=== PATIENT | male | born 1945 | race Caucasian/White ===

== ENCOUNTER → 2016-05-24 | Outpatient (CLI) | payer OTHER | LOC: CIMAGING 10:34 | PROVIDERS: ATTEND Internal Medicine Pulmonary Disease | DX: M79.605 Pain in left leg (principal); M79.89 Other specified soft tissue disorders | CPT/HCPCS: 93971-PO ==

== ENCOUNTER 2016-08-15 09:28 | Observation (INO) | payer OTHER ==
[2016-08-15] MEDS ORDERED: ASPIRIN EC 325 MG TAB PO ONE (09:32)
[2016-08-15] MEDS ORDERED: FAMOTIDINE 20 MG TAB PO ONE (09:32)
[2016-08-15] MEDS ORDERED: diphenhydrAMINE 25 MG CAP PO ONE ×2 (09:32→09:59)
[2016-08-15] MEDS ORDERED: DIAZEPAM 5 MG TAB PO ONE (09:32)
[2016-08-15] MEDS ORDERED: NS 1,000 ML IV ONE (09:32)
--- NOTE | 2016-08-15 09:48 | CPEKG ---
Heart Rate: 50 RR Interval: 1200 P-R Interval: 164 QRSD Interval: 104 QT Interval: 504 QTC Interval: 460 P Shiner: 86 QRS Shiner: 25 T Wave Shiner: 65 EKG Severity - ABNORMAL ECG - EKG Impression: SINUS RHYTHM EKG Impression: PROBABLE LEFT ATRIAL ABNORMALITY EKG Impression: NONSPECIFIC T ABNORMALITIES, LATERAL LEADS Electronically Signed By: Sabine Lucas 15-Aug-2016 09:58:16
[2016-08-15] MEDS ORDERED: FAMOTIDINE 20 MG TAB ONE (09:59)
[2016-08-15] MEDS ORDERED: DIAZEPAM 5 MG TAB ONE (09:59)
[2016-08-15] MEDS ORDERED: ASPIRIN EC 81 MG TAB PO ONE (10:00)
[2016-08-15 10:09] LABS: % IMMATURE GRANULYOCYTES 0.6 % (0.0-1.1); ABSOLUTE IMMATURE GRANULOCYTES 0.05 10^3/uL (0.00-0.10); ADD DIFF? NO; ADD MORPH? NO; ADD SCAN? NO; ATYPICAL LYMPHOCYTE FLAG 20 (0-99); FRAGMENT RBC FLAG 0 (0-99); HEMATOCRIT 45.4 % (40.0-51.0); LEFT SHIFT FLG 0 (0-99); LIPEMIA HEMOLYSIS FLAG 80 (0-99); MEAN CELL HEMOGLOBIN 30.1 pg (27.9-34.1); MEAN CELL VOLUME 91.2 fL (81.5-99.8); MEAN PLATELET VOLUME 9.2 fL (8.7-11.7); PLATELET CLUMPS FLAG 0 (0-99); PLATELET COUNT 163 10^3/uL (150-400); RED BLOOD CELL COUNT 4.98 10^6/uL (4.40-6.38); RED CELL DISTRIBUTION WIDTH 14.4 % (11.5-15.2)
[2016-08-15 10:35] LABS: INR 1.1 (0.83-1.16); PROTIME(PATIENT) 14.1 SEC (12.0-15.0)
[2016-08-15 10:40] LABS: ANION GAP 12 mEq/L (8-16); CALCIUM 8.8 mg/dL (8.5-10.4); CARBON DIOXIDE 21 mEq/l (22-31); CHLORIDE 112 mEq/L (97-110); CHOLESTEROL 141 mg/dL (140-220); CHOLESTEROL/HDL RATIO 3.44 RATIO (1.00-4.97); CREATININE 1.9 mg/dL (0.7-1.3); GLOMERULAR FILTRATION RATE 35; GLUCOSE 95 mg/dL (70-100); HIGH DENSITY LIPOPROTEIN 41 mg/dL (40-65); LDL/HDL RATIO 2.07 RATIO (1.00-3.64); LOW DENSITY LIPOPROTEIN 85 mg/dL (80-100); MAGNESIUM 2.3 mg/dL (1.6-2.3); NON-HIGH DENSITY LIPOPROTEIN 100 mg/dL (90-129); POTASSIUM 4.8 mEq/L (3.5-5.2); SODIUM 145 mEq/L (134-144); TRIGLYCERIDE 75 mg/dL (40-150); VERY LOW DENSITY LIPOPROTEINS 15 mg/dL (8-25)
[2016-08-15] MEDS ORDERED: LIDOCAINE 1% 30 ML SDV ONE (12:55)
[2016-08-15] MEDS ORDERED: IOPAMIDOL (ISOVUE-370) 150 ML BTL IV ONE ×3 (12:55→14:31)
[2016-08-15] MEDS ORDERED: fentaNYL 100 MCG/2 ML INJ ONE ×2 (13:14→15:02)
[2016-08-15] MEDS ORDERED: MIDAZOLAM 2 MG/2 ML VIAL ONE ×2 (13:14→14:31)
[2016-08-15] MEDS ORDERED: BIVALIRUDIN 250 MG/5 ML VIAL IV ONE (14:20)
[2016-08-15] MEDS ORDERED: PRASUGREL HCL 10 MG TAB ONE (14:31)
[2016-08-15] MEDS ORDERED: NITROGLYCERIN 1,500 MCG/15 ML VIAL MISC ONE (14:31)
[2016-08-15] MEDS ORDERED: TEMAZEPAM 15 MG CAP PO PRN (15:23)
[2016-08-15] MEDS ORDERED: ACETAMINOPHEN 325 MG TAB PO PRN (15:23)
[2016-08-15] MEDS ORDERED: NITROGLYCERIN 0.4 MG BTL SL PRN (15:23)
[2016-08-15] MEDS ORDERED: PRASUGREL HCL 10 MG TAB PO ONE (15:23)
[2016-08-15] MEDS ORDERED: ATROPINE SULFATE 1 MG/10 ML SYR IVP PRN (15:23)
[2016-08-15] MEDS ORDERED: HYDROCODONE/APAP 5/325 TAB PO PRN (15:23)
[2016-08-15] MEDS ORDERED: ONDANSETRON 4 MG/2 ML VIAL IVP PRN (15:23)
--- NOTE | 2016-08-15 15:42 | PDDXCAT ---
Diagnostic Cath Note - . Date: 08/15/16 Live Truck Operator: Adam Indication: other (CAD with CABG 6 months prior; recurrent CCS class II to IV angina despite medical therapy; abnormal nuclear stress test) - Procedure Access: right groin Procedure: left heart catheterization, coronary angiography, left ventriculogram , vein graft injection, ALONSO injection, right heart catheterization, other (PCI of LAD and PCI of Left Main) - Materials Left Heart Cath size: 6F Left Heart Cath materials: standard multipack (JL4, JR4, pigtail), other (KAILYN and LCB catheters) - Findings-Left Heart Catheterization LM: Ostial 70%. LAD: Mid 80%. LCX: Proximal 60 to 70%; mid 90%; OM-1 100%. RCA: Mid 100%. rSV) SVG to OM-1 patent; target vessel with minimal irregularities. 2) SVG to OM-2 patent; target vessel with minimal irrregularities. 3) SVG to PDA patent; target vessel with mild irregularities. ALONSO: ALONSO to LAD patent; target vessel with mild irregularities. EDP: 24 mmHg LVEF: 45% Wall motion: Inferior hypokinesis. - Findings-Right Heart Catheterization RA: 12 mmHg RV: 50/10 mmHg PA: 54/16/30 mmHg O2 sat 72.5% PAOP: 24 mmHg AO: 158/64/98 mmHg O2 sat 95.1% CO: 4.88 L/min CI: 2.31 L/min/sq mtr Complications: None Estimated blood loss: <50ml Closure method: Angioseal Assessment: 1) Mildly reduced LV systolic function. 2) CAD as described above. 3) Moderate pulmonary hypertension. 4) Successful PCI of the LAD using a single drug coated stent. 5) Successful PCI of protected Left Main using a single drug coated stent. Intervention: Diagnostic angiography demonstrated severe [place] multivessel CAD. All of his bypass grafts from 6 months ago are patent. However, there was an eccentric 50% stenosis at the ostium of the SVG to OM-2. The decision was made to perform intravascular ultrasound of this graft. The patient received intravenous Angiomax. A 6 Faroese LCB guiding catheter was advanced to the ostium of the SVG to OM 2. An intravascular ultrasound catheter was advanced into the mid-body of the graft and a pullback examination was performed. This demonstrated an eccentric but nonflow limiting stenosis at the origin of the graft. The diagnostic study also revealed a high-grade mid LAD stenosis which jeopardized septal perforators and 3 small to intermediate sized diagonal branches. Therefore, the decision was made to perform PCI of the LAD. A 6 Faroese CLS 3.5 guide catheter was advanced to the left main. Repeat angiography using the guide catheter revealed a 70% ostial left main stenosis which had not been appreciated previously. The decision was made to perform PCI of this lesion as well. An intuition guidewire was advanced into the distal portion of the second diagonal branch. Predilatation of the LAD was performed using a 3.0x10 mm Cutting Balloon. The Cutting Balloon was also used for predilatation of the Left Main ostium. A 4.0 x 12 mm Synergy stent was advanced to the LAD lesion and was deployed at high pressure. The second Synergy stem measuring 4.0 x 8 mm was advanced to the left main ostium and was deployed at high pressure. Final angiograms demonstrated less than 20% residual stenosis at both sites. A small diagonal branch arising from the midportion of the stented segment was now occluded. The patient was not experiencing chest discomfort and no ECG changes were observed on electrocardiographic monitoring. 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
--- NOTE | 2016-08-15 15:57 | CPEKG ---
Heart Rate: 44 RR Interval: 1364 P-R Interval: 176 QRSD Interval: 118 QT Interval: 544 QTC Interval: 466 P Grandin: 73 QRS Grandin: 7 T Wave Grandin: -51 EKG Severity - ABNORMAL ECG - EKG Impression: SINUS BRADYCARDIA EKG Impression: PROBABLE LEFT ATRIAL ABNORMALITY EKG Impression: NONSPECIFIC INTRAVENTRICULAR CONDUCTION DELAY EKG Impression: PROBABLE LATERAL INFARCT, OLD Electronically Signed By: Sabine Lucas 15-Aug-2016 16:33:23
[2016-08-15] MEDS ORDERED: hydrALAZINE 20 MG/ML VIAL IVP ONE ×2 (16:00→16:15)
[2016-08-15] MEDS ORDERED: NS BOLUS 1000 ML (Wide open) IV ONE (16:00)
[2016-08-15] MEDS ORDERED: ONDANSETRON 4 MG/2 ML VIAL ONE (16:32)
[2016-08-15] MEDS ORDERED: hydrALAZINE 20 MG/ML VIAL IVP PRN (17:52)
[2016-08-15] MEDS ORDERED: ALBUTEROL 200 PUFFS/18 GM MDI IH PRN (18:30)
[2016-08-15] MEDS: amLODIPine BESYLATE 5 MG TAB PO SCH (19:13)
[2016-08-15] MEDS ORDERED: ACETAMN/DIPHENHYDRAMINE 500/25MG TAB PO SCH (21:00)
[2016-08-15] MEDS ORDERED: DOCUSATE SODIUM 100 MG CAP PO SCH (21:00)
[2016-08-15] MEDS: DOCUSATE SODIUM 100 MG CAP PO SCH (21:26)
[2016-08-15] MEDS: ACETAMN/DIPHENHYDRAMINE 500/25MG TAB PO SCH ×2 (21:28→21:29)
[2016-08-16 05:00] LABS: % IMMATURE GRANULYOCYTES 0.4 % (0.0-1.1); ABSOLUTE IMMATURE GRANULOCYTES 0.04 10^3/uL (0.00-0.10); ADD DIFF? NO; ADD MORPH? NO; ADD SCAN? NO; ATYPICAL LYMPHOCYTE FLAG 0 (0-99); FRAGMENT RBC FLAG 0 (0-99); HEMATOCRIT 40.3 % (40.0-51.0); HEMOGLOBIN 13.3 g/dL (13.7-17.5); LEFT SHIFT FLG 0 (0-99); LIPEMIA HEMOLYSIS FLAG 80 (0-99); MEAN CELL HEMOGLOBIN 30.9 pg (27.9-34.1); MEAN CELL VOLUME 93.7 fL (81.5-99.8); MEAN PLATELET VOLUME 10.3 fL (8.7-11.7); PLATELET CLUMPS FLAG 10 (0-99); PLATELET COUNT 146 10^3/uL (150-400); RED CELL DISTRIBUTION WIDTH 14.6 % (11.5-15.2)
[2016-08-16 05:21] LABS: ALBUMIN 3.4 g/dL (3.5-5.0); ANION GAP 10 mEq/L (8-16); ASPARTATE AMINOTRANSFERASE 55 IU/L (17-59); BILIRUBIN,TOTAL 0.7 mg/dL (0.1-1.4); CALCIUM 8.3 mg/dL (8.5-10.4); CARBON DIOXIDE 21 mEq/l (22-31); CHLORIDE 109 mEq/L (97-110); CREATININE 1.6 mg/dL (0.7-1.3); GLOMERULAR FILTRATION RATE 43; GLUCOSE 66 mg/dL (70-100); LACTATE DEHYDROGENASE 701 IU/L (313-618); MAGNESIUM 2.1 mg/dL (1.6-2.3); POTASSIUM 5.2 mEq/L (3.5-5.2); SODIUM 140 mEq/L (134-144)
[2016-08-16 05:24] LABS: CK-MB INTERPRETATION POSITIVE (NEGATIVE)
[2016-08-16 07:58] VITALS: BP 154/81; PULSE 60; RESP 18; TEMP 98.1
--- NOTE | 2016-08-16 08:45 | CPEKG ---
Heart Rate: 68 RR Interval: 882 P-R Interval: 144 QRSD Interval: 104 QT Interval: 444 QTC Interval: 473 P [place]: 59 QRS [place]: 23 T Wave [place]: 92 EKG Severity - NORMAL ECG - EKG Impression: SINUS RHYTHM Electronically Signed By: Sabine Lucas 16-Aug-2016 12:04:13
[2016-08-16] MEDS ORDERED: ATORVASTATIN CALCIUM 40 MG TAB PO SCH (09:00)
[2016-08-16] MEDS ORDERED: ASPIRIN EC 325 MG TAB PO SCH (09:00)
[2016-08-16] MEDS ORDERED: PRESERVISION AREDS2 FORMULA EYE VIT 1 EACH PO SCH (09:00)
[2016-08-16] MEDS ORDERED: PRASUGREL HCL 10 MG TAB PO SCH (09:00)
[2016-08-16] MEDS ORDERED: METOPROLOL TARTRATE 25 MG TAB PO SCH (09:00)
[2016-08-16] MEDS: DOCUSATE SODIUM 100 MG CAP PO SCH (09:53)
[2016-08-16] MEDS: amLODIPine BESYLATE 5 MG TAB PO SCH (09:54)
[2016-08-16 10:50] VITALS: O2SAT 80
--- NOTE | 2016-08-17 06:01 | GDS ---
[f rep st] DISCHARGE SUMMARY ADMISSION DIAGNOSES: 1. Coronary artery disease. 2. Hyperlipidemia. 3. Paroxysmal atrial fibrillation. 4. Abnormal nuclear stress test. 5. Chest pain. 6. Chronic obstructive pulmonary disease. 7. Hypoxia. DISCHARGE DIAGNOSES: 1. Coronary artery disease with previous coronary artery bypass grafting. 2. Hyperlipidemia. 3. Paroxysmal atrial fibrillation. 4. Chronic obstructive pulmonary disease. 5. Status post percutaneous coronary intervention. Intravascular ultrasound of obtuse marginal-2, s aphenous vein graft. 6. Status post stenosis of the proximal left anterior descending, feeding several diagonal branches and septal perforators also stenosis of left main, status post percutaneous coronary intervention o f the left anterior descending with a 4.0 x 12 Synergy stent and percutaneous coronary intervention of protected left main with a 4.0 x 8 mm in the protected left main. 7. Hypoxia. PROCEDURES DONE DURING HOSPITALIZATION: 1. Electrocardiogram. 2. Diagnostic left heart catheterization with grafts. 3. Intervascular ultrasound of SVG OM-1 graft, OM-2 graft. 4. PCI of the proximal LAD with a 4.0 x 12 Synergy KARIN implantation. 5. PCI of protected left main, with a Synergy KARIN 4.0 x 8 Synergy stent. BRIEF HISTORY: Please see H and P: The patient is a 71-year-old male who has significant history t hat includes CAD, hyperlipidemia, paroxysmal atrial fibrillation, he is 6 months status post 4 vesse l CABG, he continued to experience chest discomfort, Dr. Medina had him undergo Lexiscan nuclear s tress test, which demonstrated a large size area of moderate intense reversibility perfusion deficit involving the proximal to mid inferior and lateral castaneda, LVEF was 51%. Due to the patient having continuation of chest pressure, abnormal stress testing, it was felt best that the patient proceed w ith diagnostic coronary catheterization with grafts. HOSPITAL COURSE: Patient was admitted to the CVC, prepped for procedure, and taken to the coronary catheterization lab. There Dr. Medina performed a diagnostic catheterization showing the left eve n had an ostial lesion of 70%, mid LAD had an 80% lesion, proximal [place] circ had 60%-70% and mid 9 0%, obtuse marginal 1 was 100% occluded, RCA was 100%, vein graft showed SVG to OM1 patent with targ et vessels with minimal irregularities, SVG O2 patent target vessels with minimal irregularities, bu t was noted to have eccentric 50% stenosis. SVG to PDA patent. Target vessel with minimal luminal irregularities in ALONSO to LAD patent with mild irregularities, EDP was estimated at 24 mmHg. LVEF was 45%, noted with inferior wall hypokinesis. At that point, Dr. Meraz'aaliyah decided to perform intervention, with eccentric lesion in the ostium o f the SVG to OM2, he performed an IVUS, which showed no flow-limiting disease. At that point, he pr oceeded onto intervene on the proximal LAD and protected left main. Two KARIN implantation was done w ith no complications. Patient was transferred back to the CVC and ultimately to the PCU for overnig ht observation. The patient reporting no chest pressure or pain throughout the evening, he had cont inuous cardiac monitoring showing sinus rhythm, vital signs have remained stable. Unfortunately, mame agrawal has been noncompliant with wearing his home oxygen, and his SpO2 on room air would drop down t o 80%. He denies any chest pressure or pain. PHYSICAL EXAMINATION: GENERAL APPEARANCE: Medium built, male. He is alert and oriented to person, place, time, and situation. Appears to be under no acute distress. VITAL SIGNS: [facility] vital signs are blood pressure of 154/80, saturation heart rate of 60s, sinus rhythm on the monito r, respirations 18, noted to be 80% on room air and 92% on 2 L nasal cannula. Temperature 36.7 degr ees Celsius. HEENT: Head is normocephalic. Lips and tongue are pink and moist with no signs of cy anosis. Conjunctivae pink. NECK: Trachea is midline, +2 carotid pulses bilateral. No auscultated bruits, no jugular vein distention. RESPIRATORY: Lungs clear to auscultation, no rhonchi, rales o r wheezes. No accessory muscle use, no intercostal muscle retraction noted. CARDIAC: Regular rate , regular rhythm, S1, S2, no S3 noted, 1-2/6 systolic murmur noted along the left sternal border. A BDOMEN: Soft, nontender, bowel sounds x4 quadrants, no organomegaly, no palpable masses. SKIN: Pi nk, warm, dry, trace peripheral edema. VASCULAR: +2 carotids bilateral, +2 radials bilateral, +1 p osterior tibial and dorsal pedal pulses bilateral. Catheter insertion site, right groin site, with no redness, swelling, drainage, ecchymosis, or hematoma. No auscultated bruit over site. NEURO: C ranial nerves 2-10 grossly intact. LABORATORY STUDIES: Drawn today show WBC 10.34, hemoglobin of 13.3, hematocrit 40.3, platelet count of 146. Sodium 140, potassium 5.2, chloride 109, CO2 21, BUN 36, creatinine 1.6, glucose 66, calci um 8.3, phosphorus 4.7, magnesium 2.1, total bilirubin 0.7, AST 55, CK of 335, CK-MB fraction 29.9, CK-MB percentage 8.9. Troponin 5.810. Albumin 3.4. Note, expected elevated cardiac enzymes post P CI, Dr. Medina reports having to stent over a small septal branch. On admission triglycerides were noted at 75, total cholesterol 141, LDL 85, HDL 41. Dr. Medina nicholson s ordered for patient to be checked to see if he is an adequate Plavix metabolizer. PROCEDURES: Coronary catheterization and percutaneous coronary intervention as mentioned above. El ectrocardiogram done today shows sinus rhythm, normal axis, biphasic T-waves in V5 and V6, in lead 2 and AVF. DISCHARGE DISPOSITION: Patient will be discharged home in stable condition. He is under activity r estrictions of not lifting more than 10 pounds for the next week, no strenuous activity for the next 2 weeks. DISCHARGE MEDICATIONS: Please see discharge medication reconciliation sheet. Note that the patient 's low-dose aspirin has been discontinued, and has been replaced with 325 mg daily. Patient has als o been started on Effient 10 mg p.o. daily. DISCHARGE INSTRUCTIONS: Post percutaneous coronary intervention discharge instructions went over wi th the patient and his daughter, they both verbalize understanding, instructions including monitorin g for signs of infection, activity restrictions, medication compliancy, especially the importance of anti-platelet therapy with recent drug-eluting stent implantation, and followup. The patient has a followup appointment set with Dr. Medina late next week. Also to note patient we have reconfirme d his home oxygen dosage, and we have arranged for him to have oxygen for his ride home. At the gary e of discharge, the patient and his daughter both verbalized understanding all instructions. They h ave no questions. They have been told that if any problems or concerns come up once discharged, the y are to call our office or return to the hospital or seek medical attention. Total time spent on discharge greater than 30 minutes. /[id number]/MODL
[2016-08-20 14:10] LABS: 2C19S GENOTYPE STAR ALLELES 17/17; 2C19S INTERPRETATION See Comments
== END 2016-08-16 16:05 | disposition home or self-care (01) ==
LOC: FCATH 09:28 → F2W 15:23
PROVIDERS: ADMIT Internal Medicine Interventional Cardiology; ATTEND Internal Medicine Interventional Cardiology
DX: T82.857A Stenosis of other cardiac prosthetic devices, implants and grafts, initial encounter (principal); I25.10 Atherosclerotic heart disease of native coronary artery without angina pectoris; E78.5 Hyperlipidemia, unspecified; I48.0 Paroxysmal atrial fibrillation; I25.2 Old myocardial infarction; Z95.1 Presence of aortocoronary bypass graft
CPT/HCPCS: 92928; 92978; 92979; 93005; 93461; C1725; C1753; C1769; C1887; G0378; 81225-90; C1760; C1874; C9600; J0360; J0461; J0583; J1644; J2250; J2405; J3010; Q9967

== ENCOUNTER → 2018-04-10 | Outpatient (CLI) | payer OTHER | LOC: CLAB 14:38 → CIMAGING 14:40 → EDSTATUS 14:40 | PROVIDERS: ATTEND Family Medicine | DX: I51.7 Cardiomegaly (principal); J44.9 Chronic obstructive pulmonary disease, unspecified; Z95.5 Presence of coronary angioplasty implant and graft | CPT/HCPCS: 71046-PO ==